=== PATIENT | female | born 1960 | race Caucasian/White ===

== ENCOUNTER → 2018-07-07 | Outpatient (CLI) | payer OTHER ==
--- NOTE | 2018-07-07 09:26 | RAD ---
CHEST PA LATERAL Clinical indications: SMOKER X 30 YEARS, COUGH COMPARISON: None available. Findings: Bilateral interstitial lung infiltrates or peribronchial thickening is seen. No lung consolidation or lung mass or pleural effusion or pneumothorax is seen otherwise. The heart size, pulmonary vasculature, mediastinum and both eugenio are unremarkable. The osseous structures appear intact. Impression: Bilateral interstitial lung infiltrates or bronchitis is seen which may be acute or chronic in nature. No consolidative pneumonia. Electronically signed by: Inocencio Franklin MD (07/07/2018 9:23 AM) [facility]
--- NOTE | 2018-07-07 14:16 | RAD ---
DATE: July 07, 2018 EXAM: MAMMO GIN SCREENING BILATERAL HISTORY: Screening study. COMPARISON: December 05, 2014 2-D digital mammographic views of both breasts were performed in the CC and MLO projections. 3-D digital tomosynthesis images of both breasts were performed in the CC and MLO projections and reviewed on a computer workstation. This study was interpreted with the benefit of Computerized Aided Detection (CAD). FINDINGS: Breast Density: FATTY The breast parenchyma is primarily fatty replaced. Breast parenchyma level density A.. There are no dominant suspicious masses, suspicious microcalcifications or evidence of architectural distortion. IMPRESSION: No mammographic indicators for malignancy. BI-RADS CATEGORY: 1 NEGATIVE RECOMMENDED FOLLOW-UP: 12M 12 MONTH FOLLOW-UP PQRS compliance statement: Patient information was entered into a reminder system with a target due date July 08, 2019 for the next mammogram. Mammography is a sensitive method for finding small breast cancers, but it does not detect them all and is not a substitute for careful clinical examination. A negative mammogram does not negate a clinically suspicious finding and should not result in delay in biopsying a clinically suspicious abnormality. "Our facility is accredited by the [employer] Mammography Program." The patient's breast density may affect the ability of mammography to detect breast cancer. There are 4 categories of breast density, A, B, C and D. Breast density A means that most of the breast tissue is replaced with adipose tissue and therefore is not dense. Breast density B means that the breast tissue is mildly dense and scattered. Breast density C means that the breast tissue is heterogeneously dense. Breast density D means that the breast tissue is very dense. Breast densities especially C and D may decrease the sensitivity of mammography to detect breast cancer. Therefore, the patient may benefit from 3-D breast mammography (3D breast tomography) as a part of their screening mammogram. Insurance may or may not pay for this additional imaging. The patient's breast density based on today's mammogram is category A.
== END | disposition home or self-care (01) ==
LOC: MAMMO 08:43
PROVIDERS: ATTEND Specialist
DX: Z12.31 Encounter for screening mammogram for malignant neoplasm of breast (principal); F17.200 Nicotine dependence, unspecified, uncomplicated
CPT/HCPCS: 71046; 77063; 77067

== ENCOUNTER → 2020-02-20 | Outpatient (CLI) | payer OTHER ==
[~2020-02-20] MED LIST: ASPI-630 PO; ATOR20TA58 PO; FLUO20TA11 PO; INSU100V6 SQ; INSU3INS2 SQ; IOHEXOL 180 MG/ML 10 ML VIAL. ONE; LOSA25TA54 PO; METF10007 PO; METO100T7 PO; OMEP40CA45 PO; OXYB5TAB10 PO; methylPREDNISolone ACETATE 40 MG/ML VIAL. ONE; methylPREDNISolone ACETATE 80 MG/ML VIAL. ONE
--- NOTE | 2020-02-20 14:56 | PDOC1 ---
INITIAL PAIN CONSULT DATE OF SERVICE: DOS: DATE: 02/20/20 TIME: 14:48 CHIEF COMPLAINT: Chief Complaint: Lumbar radiculopathy with lumbar degenerative disease and lumbar spinal stenosis Cervical radiculopathy with cervical degenerative disease and cervical spinal stenosis HISTORY OF PRESENT ILLNESS: 59-year-old female presents history of pain low back and left lower extremity for 10+ years worse over the past year or so not result of any specific injury or accident that she is aware of but getting worse with time across the low back mid back and into the left posterior lateral and anterior thigh anterior medial thigh medial lower leg as well. Patient reports pain is sharp and stabbing throbbing and shooting in the low back and then radiating to the left lower extremity worse with walking standing changing positions described as aching cramping and burning in the back intermittent intensity she can walk for about 10 to 15 minutes and has to sit and rest to get the pain to decrease and gets up and travels on with the same thing repeating. Patient rates her disability rating 0-10 10 being the worst is a 5 with family home responsibilities and social activity 7 with recreation and occupation 0 with self-care life support activities. Patient ports the pain wakes her from sleep occasionally but not most nights does not affect her bowel bladder control significantly with no incontinence but does affect her ability to walk fairly significantly she is not use any assistive devices however. Patient is had physical therapy in the past as well as trigger point injections chiropractic treatment exercise and dry needling this year which have been helpful but only temporarily. Patient continues see her chiropractor and was going on a daily basis at one point. Patient is taking gabapentin which did not help significantly she is also tried [id number] Tylenol Motrin with only minimal decrease in pain as well. Patient have a MRI scan lumbar spine showing multilevel degenerative changes most pronounced at L4-5 with mild spinal canal stenosis and contact of the right L5 nerve roots in the subarticular zone mild right neuroforaminal stenosis as well. PAST MEDICAL HISTORY: PMH: Hypertension, diabetes, hyperlipidemia, Esophageal reflux, arthritis, meningitis 1969 PREVIOUS SURGERIES: Past Surgical Hx: Bilateral carpal tunnel repair, total abdominal hysterectomy with bladder repair and rectocele repair, breast reduction ALLERGIES; Allergies: Coded Allergies: codeine (Verified Allergy, Unknown, unk, 02/20/20) meperidine (Verified Allergy, Unknown, unk, 02/20/20) FAMILY HISTORY: Family Hx: Diabetes, heart disease, arthritis SOCIAL HISTORY: Social Hx: Patient does not take alcohol does not use any illegal illicit recreational drugs does smoke less than 1 pack a day for the past 35 years continues to smoke is single lives locally in [facility]. REVIEW OF SYSTEMS: ROS: Positive for those items mentioned in history of present illness, all systems are reviewed, otherwise negative, is complete full and well-documented on patient's chart PHYSICAL EXAM: VS: Blood pressure one 9/60 pulse 71 respiration 16 temperature 90.4 F height is 5 foot 4 inches weight is 256 pounds PE: PHYSICAL EXAMINATION: GENERAL: The patient is awake, alert, oriented, appropriate, very pleasant demeanor HEENT: Shows normocephalic, atraumatic. Extraocular movements are intact and symmetrical. Oral cavity: Mucous membranes moist and pink. Dentition is intact. NECK: Shows anterior throat supple without palpable lymphadenopathy noted. Swallow reflex symmetrical. CHEST: Shows normal on inspection. Breath sounds are clear bilaterally, distant but no rales rhonchi or wheezes auscultated. HEART: Shows S1, S2 clear. No murmurs auscultated. ABDOMEN: Soft, nontender, nondistended, obese. No palpable organomegaly is noted. No rebound or guarding demonstrated. BACK: Shows spine grossly in the midline. Normal-appearing cervical lordotic curvature. Patient shows good rotation motion cervical spine with a mild tenderness with extension but not with forward flexion right left lateral rotation performed close to 90 degrees bilaterally. There is slightly increased thoracic kyphosis, some minor flattening of the lumbar lordotic curvature. Lumbar paraspinous muscles show symmetrical on inspection, on palpation shows some moderate tenderness diffusely throughout the upper, middle and lower distribution of the paraspinous muscles bilaterally and also into the lower thoracic paraspinous musculature, firm and tender, but without specific trigger points, without radiation of pain. The patient has good rotational motion of the lumbar spine, both laterally as well as extension and flexion without significant difficulty. No tenderness over the spinous processes, sacrum or sacroiliac regions. EXTREMITIES: Lower extremities show deep tendon reflexes 2+ in the patellar and tendo calcaneus tendons. Motor exam is 4 on a scale of 5 with right dorsiflexion, extension, quadriceps and hamstring flexion and 4/5 on the left. Peripheral pulses are 1+ posterior tibial. No peripheral edema is noted raji aterally. Lower extremities are warm and dry to touch, equal in color and appearance. Straight leg raise noted to be negative bilaterally. Gaenslen's and Naman's maneuvers are negative as well. Upper extremities show deep tendon reflexes 2+ in the biceps and triceps tendons bilaterally, motor exam is strong with 5 out of 5 clinical tech strength bicep and tricep flexion. Peripheral p ulses are 2+ radial no peripheral edema is noted bilaterally. Shoulder shrug is strong and intact without loss of strength on resistance. The patient is able to stand, stand on her toes without significant difficulty or loss of balance walks with a slight widened stance gait but without favoring the right or left lower extremity significantly does not use any assistive devices to ambulate. SKIN: Shows warm and dry, good turgor. No edema. No sores, rashes or bruising throughout. IMPRESSION: Impression: 59-year-old female with long history low back and left lower extremity pain worse over the past 1 year MRI scan lumbar spine as noted Cervical MRI as noted Arthritis Hypertension Diabetes Obesity Cigarette smoking Plan: Options were discussed with the patient including conservative medical management physical therapies interventional techniques and she like to proceed removal techniques. We discussed a lumbar epidural steroid injection using description as well as anatomical models to describe the procedure. Risks were discussed including but not limited to: Bleeding, infection, possibility of epid ural hematoma and subsequent neurological compromise, dural puncture, headaches, spinal cord and/or nerve damage, side effects of steroid medication, and poor results regarding pain control. Patient understands wished to proceed. Patient will return to clinic in approximately 2 weeks for follow-up was counseled as to return appointment activity level and side effects to be aware of. Procedure is lumbar epidural steroid injection under local anesthetic using sterile prep and drape at the L4-5 level using C-arm fluoroscopic guidance in both AP and lateral views medications injected is 120 mg Depo-Medrol + 10 mL preservative-free normal saline and 2 mL contrast- condition at discharge is stable patient tolerated procedure well had no complications. SALOME GOYAL MD Feb 20, 2020 14:56
== END ==
LOC: PNCL 13:16
PROVIDERS: ATTEND Anesthesiology
DX: M51.16 Intervertebral disc disorders with radiculopathy, lumbar region (principal); M48.061 Spinal stenosis, lumbar region without neurogenic claudication; M50.10 Cervical disc disorder with radiculopathy, unspecified cervical region; M48.02 Spinal stenosis, cervical region; I10 Essential (primary) hypertension; E11.9 Type 2 diabetes mellitus without complications; E78.5 Hyperlipidemia, unspecified; K21.9 Gastro-esophageal reflux disease without esophagitis; M19.90 Unspecified osteoarthritis, unspecified site; Z98.890 Other specified postprocedural states; Z83.3 Family history of diabetes mellitus; Z79.899 Other long term (current) drug therapy; Z79.84 Long term (current) use of oral hypoglycemic drugs; Z88.5 Allergy status to narcotic agent; Z88.8 Allergy status to other drugs, medicaments and biological substances
CPT/HCPCS: 62323; J1030; J1040; Q9965

== ENCOUNTER → 2020-05-09 | Outpatient (CLI) | payer OTHER ==
[~2020-05-09] MED LIST changes: +BUPIVACAINE MPF 0.25% 10 ML VIAL. ONE; -IOHEXOL 180 MG/ML 10 ML VIAL. ONE; -methylPREDNISolone ACETATE 80 MG/ML VIAL. ONE
--- NOTE | 2020-05-09 09:30 | PDOC ---
Progress Note - Pain Clinic Date of Service: DOS: DATE: 05/09/20 TIME: 09:21 Diagnosis: Dx: Lumbar to colopathy with lumbar degenerative disease lumbar spinal stenosis Cervical radiculopathy with cervical degenerative disease and cervical spinal stenosis Myofascial pain History or Present Illness: HPI: 59-year-old female returns follow-up status post lumbar epidural to injection x2. Patient was about 70% improvement in her low back and bilateral lower extremity pain. Patient reports he is doing much better with increased activity distance walking doing household activities work activities travel with greater ease and comfort sleeping better at night. Her chief complaint is pain the base the neck and shoulders upper back as well. We had discussed this with her on her last visit and plan on trigger point injections today if not significant improvement patient reports is actually somewhat worse in the neck shoulders upper back mid back bilaterally somewhat worse on the left but present bilaterally. Patient reports is a 7 on scale 10 is worse over the past week 5 on average 3 at its least is a 5 today. Patient scribes pain is aching sharp dull tight burning stinging tingling stabbing on and off in intensity worse with activity of the upper extremities lifting items or repetitive motions with the shoulders and arms as well as repetitive movement of the neck such as looking at a computer monitor. Patient reports no new motor or sensory deficits no new bowel or bladder incontinence or other complaints. Physical Exam: VS: Blood pressure is 97/55 pulse 67 respirations 18 temperature 90.6 F height 5 foot 4 inches weight is 254 pounds PE: PHYSICAL EXAMINATION: GENERAL: The patient is awake, alert, oriented, appropriate, very pleasant demeanor HEENT: Shows normocephalic, atraumatic. Extraocular movements are intact and symmetrical. Oral cavity: Mucous membranes moist and pink. NECK: Shows anterior throat supple without palpable lymphadenopathy noted. Swallow reflex symmetrical. CHEST: Shows normal on inspection. Breath sounds are clear bilaterally, no rales or rhonchi. HEART: Shows S1, S2 clear. No murmurs auscultated. ABDOMEN: Soft, nontender, nondistended, obese. No palpable organomegaly is noted. No rebound or guarding demonstrated. BACK: Shows spine grossly in the midline. Normal-appearing cervical lordotic curvature. Cervical paraspinous but shows symmetrical on inspection palpation some significant tenderness very firm ropelike musculature in the middle and inferior aspect of the cervical paraspinous musculature more on the left than the right but present bilaterally very firm ropelike musculature consistent with trigger point areas of musculature this is true into the superior medial and lateral trapezius again worse on the left than the right but present bilaterally without specific radiation but very firm ropelike musculature consistent with trigger point areas of musculature also into the rhomboid distribution and the thoracic paraspinous muscles again worse on the left but present bilaterally with very firm very tender ropelike musculature bilaterally without radiation. There is slightly increased thoracic kyphosis, some minor flattening of the lumbar lordotic curvature. Lumbar paraspinous muscles show symmetrical on inspection, on palpation shows some moderate tenderness diffusely throughout the upper, middle and lower distribution of the paraspinous muscles without specific trigger points, without radiation of pain. The patient has good rotational motion of the lumbar spine, both laterally as well as extension and flexion without significant difficulty. No tenderness over the spinous processes, sacrum or sacroiliac regions. EXTREMITIES: Lower extremities show deep tendon reflexes 2+ in the patellar and tendo calcaneus tendons. Motor exam is 4 on a scale of 5 with right dorsiflexion, extension, quadriceps and hamstring flexion and 4/5 on the left. Peripheral pulses are 1+ posterior tibial. No peripheral edema is noted bilaterally. Lower extremities are warm and dry to touch, equal in color and appearance. Upper extremities show deep tendon reflexes 2+ in the bicep triceps tendons, motor exam is strong with 5 out of 5 building services technician strength bicep and tricep flexion bilaterally. SKIN: Shows warm and dry, good turgor. No edema. No sores, rashes or bruising throughout. Procedure: Procedure: Options were discussed with the patient. Patient chart was reviewed as her current medication regimen updated current review of systems updated today as well. We will proceed with trigger point injections of the identified musculature. Risks were discussed including not limited to bleeding infection possibility of intravascular injection sequelae spread local anesthetic numbness side effects steroid medication pneumothorax as well as poor results regarding pain control. Patient understands wished to proceed. Patient return to clinic in approximate 2 weeks for follow-up was counseled as to return appointment to the level and side effects to be aware of. Medication Injected: Med Injected: Under sterile prep and drape patient's neck and upper back were sterilely prepped and trigger point identified in the cervical paraspinous posterior bilateral trapezius musculature bilaterally and rhomboid and thoracic paraspinous muscular bilaterally and injected after negative aspiration at each trigger point site. Total of 12 cc 0.25% bupivacaine and 40 mg Depo-Medrol. Condition at Discharge: Condition at Discharge: Condition at discharge is stable, patient tolerated procedure well and had no complications. SALOME GOYAL MD May 09, 2020 09:30
== END | disposition home or self-care (01) ==
LOC: PNCL 08:11
PROVIDERS: ATTEND Anesthesiology
DX: M79.18 Myalgia, other site (principal); M51.16 Intervertebral disc disorders with radiculopathy, lumbar region; M48.061 Spinal stenosis, lumbar region without neurogenic claudication; M50.10 Cervical disc disorder with radiculopathy, unspecified cervical region; M48.02 Spinal stenosis, cervical region; Z98.890 Other specified postprocedural states; Z88.6 Allergy status to analgesic agent; Z88.8 Allergy status to other drugs, medicaments and biological substances
CPT/HCPCS: 20553; J1030; J3490